=== PATIENT | female | born 1945 | race Two or more races ===

== ENCOUNTER 2019-09-01 05:56 | Day surgery (SDC) | payer OTHER ==
[~2019-09-01 05:56] MED LIST: GABAPENTIN800 MG PO; SYMBICORT 16010.2 GM IH; [UNRECOGNIZED DRUG - OTHER] PO
== END 2019-09-01 11:50 | disposition home or self-care (01) ==
LOC: CIR.AMB 05:56
DX: M65.841 Other synovitis and tenosynovitis, right hand (principal)